=== PATIENT | female | born 1970 | race Caucasian/White ===

== ENCOUNTER 2019-11-30 14:56 | Observation (INO) ==
[2019-11-30] MEDS ORDERED: Ipratropium/Albuterol Neb 3 ML IH ONE (15:05)
[2019-11-30] MEDS ORDERED: methylPREDNISolone 125 MG/2 ML VIAL IVP ONE (15:05)
[2019-11-30] MEDS ORDERED: Azithromycin 250 MG TABLET PO ONE (15:05)
[2019-11-30 15:54] LABS: Basophils # 0.1 K/mcL (0.0-0.2); Eosinophils # 0.3 K/mcL (0.0-0.6); Eosinophils % 4.8 %; Hemoglobin 9.8 g/dL (11.5-15.4); Immature Granulocytes % 0.9 % (0-4); Lymphocytes # 0.8 K/mcL (0.6-4.6); Lymphocytes % 14.3 %; Mean Corpuscular HGB Conc 28.8 g/dL (31.6-35.5); Mean Corpuscular Volume 97.1 fL (83.0-100.0); Mean Platelet Volume 9.7 fL (9.4-12.4); Monocytes # 0.5 K/mcL (0.0-1.3); Monocytes % 9.3 %; Platelet Count 121 K/mcL (140-400); Red Cell Distribution Width 17.4 % (11.5-14.5); Segmented Neutrophils % 69.7 %; White Blood Count 5.8 K/mcL (4.3-11.1)
[2019-11-30 16:00] LABS: Alanine Aminotransferase 7 Units/L (7-52); Albumin 3.1 g/dL (3.5-5.7); Albumin/Globulin Ratio 0.7 (1.1-2.2); Alkaline Phosphatase 100 Units/L (34-104); Aspartate Amino Transferase 17 Units/L (13-39); BUN/Creatinine Ratio 14 (6-26); Bilirubin,Direct 0.2 mg/dL (0.0-0.2); Bilirubin,Indirect 0.4 mg/dL (0.0-1.0); Bilirubin,Total 0.6 mg/dL (0.3-1.0); Blood Urea Nitrogen 7 mg/dL (6-20); Calcium 8.6 mg/dL (8.6-10.3); Carbon Dioxide 37 mEq/L (23-29); Chloride 100 mEq/L (98-107); Globulin 4.2 g/dL (2.4-3.5); Glucose 112 mg/dL (70-105); Osmolality,Calculated 295 (280-300); Potassium 4.6 mEq/L (3.5-5.1); Sodium 143 mEq/L (136-145); Total Protein 7.3 g/dL (6.4-8.9); Troponin I < 0.03 ng/mL (< 0.04); eGFR For African Americans > 60 (> 60); eGFR For Non-African Americans > 60 (> 60)
[2019-11-30] MEDS ORDERED: Furosemide 40 MG/4 ML VIAL IVP STA (16:03)
[2019-11-30 16:27] LABS: Anisocytosis 1+ (Not Present); Hypochromasia Present (Not Present); Platelet Estimate Normal (Normal)
[2019-11-30] MEDS ORDERED: Ondansetron ODT 4 MG TAB.RAPDIS SL PRN (17:51)
[2019-11-30] MEDS ORDERED: Dextrose Gel 15 GM/37.5 ML TUBE PO PRN (18:18)
[2019-11-30] MEDS: *HR* Heparin 5,000 UNIT/ML VIAL SQ SCH (18:55)
[2019-11-30 19:39] LABS: Adenovirus Not Detected (Not Detect); Bordetella Pertussis Not Detected (Not Detect); Chlamydophila pneumoniae Not Detected (Not Detect); Coronavirus 229E Not Detected (Not Detect); Coronavirus NL63 Not Detected (Not Detect); Coronavirus OC43 Not Detected (Not Detect); Human Metapneumovirus Not Detected (Not Detect); Human Rhinovirus/Enterovirus Not Detected (Not Detect); Influenza A Subtype 2009 H1 Not Detected (Not Detect); Influenza B Not Detected (Not Detect); Mycoplasma pneumoniae Not Detected (Not Detect); Parainfluenza Virus 1 Not Detected (Not Detect); Parainfluenza Virus 2 Not Detected (Not Detect); Parainfluenza Virus 3 Not Detected (Not Detect); Parainfluenza Virus 4 Not Detected (Not Detect); Respiratory Syncytial Virus Not Detected (Not Detect)
[2019-11-30 19:40] LABS: Coronavirus HKU1 DETECTED (Not Detect)
[2019-11-30] MEDS: Ipratropium/Albuterol Neb 3 ML IH SCH ×2 (20:00→23:28)
[2019-11-30] MEDS ORDERED: Insulin LISPRO 300 UNITS/3 ML VIAL SQ SCH (21:00)
[2019-11-30] MEDS ORDERED: Furosemide 40 MG/4 ML VIAL IVP SCH (21:00)
[2019-11-30] MEDS ORDERED: *HR* OxyCODONE Immed Rel 5 MG TABLET PO ONE (21:44)
[2019-11-30 21:46] LABS: Estimated Average Glucose 108 mg/dl
[2019-11-30] MEDS ORDERED: Acetaminophen 325 MG TABLET PO PRN (23:28)
[2019-11-30] MEDS: Budesonide/Formoterol 160/4.5 1 PUFF INH IH SCH (23:28)
[2019-12-01] MEDS: Ipratropium/Albuterol Neb 3 ML IH SCH ×3 (03:56→11:13)
[2019-12-01] MEDS ORDERED: *HR* OxyCODONE Immed Rel 5 MG TABLET PO ONE (04:19)
[2019-12-01] MEDS ORDERED: Nystatin POWDER 30 GM BOTTLE TP SCH (04:55)
[2019-12-01] MEDS: *HR* Heparin 5,000 UNIT/ML VIAL SQ SCH (05:45)
[2019-12-01 06:51] VITALS: BP 127/66
[2019-12-01 07:17] LABS: Basophils % 0.2 %; Hematocrit 32.7 % (35.3-44.9); Hemoglobin 9.6 g/dL (11.5-15.4); Lymphocytes # 0.6 K/mcL (0.6-4.6); Lymphocytes % 11.9 %; Mean Corpuscular HGB Conc 29.4 g/dL (31.6-35.5); Mean Corpuscular Hemoglobin 27.6 pg (28.0-33.3); Mean Platelet Volume 10.2 fL (9.4-12.4); Monocytes # 0.3 K/mcL (0.0-1.3); Monocytes % 6.2 %; Neutrophils # 4.1 K/mcL (1.6-8.9); Platelet Count 124 K/mcL (140-400); Red Blood Count 3.48 M/mcL (3.82-4.97); Red Cell Distribution Width 17.2 % (11.5-14.5); Segmented Neutrophils % 80.7 %; White Blood Count 5.1 K/mcL (4.3-11.1)
[2019-12-01] MEDS ORDERED: Insulin LISPRO 300 UNITS/3 ML VIAL SQ SCH (07:30)
[2019-12-01] MEDS: Budesonide/Formoterol 160/4.5 1 PUFF INH IH SCH (07:35)
[2019-12-01 07:37] LABS: BUN/Creatinine Ratio 16 (6-26); Blood Urea Nitrogen 8 mg/dL (6-20); Calcium 8.8 mg/dL (8.6-10.3); Carbon Dioxide 40 mEq/L (23-29); Chloride 95 mEq/L (98-107); Glucose 122 mg/dL (70-105); Osmolality,Calculated 288 (280-300); Potassium 4.3 mEq/L (3.5-5.1); Sodium 139 mEq/L (136-145); eGFR For African Americans > 60 (> 60); eGFR For Non-African Americans > 60 (> 60)
[2019-12-01] MEDS ORDERED: predniSONE 20 MG TABLET PO SCH (09:00)
[2019-12-01] MEDS ORDERED: Azithromycin 500 MG in 0.9 % Sodium Chloride 250 ML IVPB SCH (09:00)
== END 2019-12-01 11:27 | disposition left against medical advice (07) ==
LOC: EMEROOARM 14:56 → 3BNU 14:56
PROVIDERS: ADMIT Pharmacist; ATTEND Pharmacist